=== PATIENT | female | born 1965 | race Caucasian/White ===

== ENCOUNTER 2022-03-23 12:50 | Outpatient (CLI) | payer OTHER, SELFPAY ==
--- NOTE | 2022-03-23 13:00 | CRLHL7_ITS ---
For Patients: As a result of the Century Cures Act, medical imaging exams and procedure reports are released immediately into your electronic medical record. You may view this report before your referring provider. If you have questions, please contact your health care provider. BILATERAL SCREENING MAMMOGRAM WITH COMPUTER-AIDED DETECTION AND TOMOSYNTHESIS TECHNIQUE: CC and MLO views were obtained. These mammographic images have been obtained using full-field digital technique. These mammographic images were interpreted with the benefit of computer-aided detection. Breast Tomosynthesis was used in this interpretation. COMPARISON FILM: 02/28/21, 03/14/20, 03/13/19. FINDINGS: The breasts are heterogeneously dense, which may obscure small masses IMPRESSION: There is no radiographic evidence for malignancy. ASSESSMENT: BI-RADS Category 1: Negative RECOMMENDATION: Routine screening mammogram in 1 year. A lay language report of this examination will be provided to the patient. Alexy Lee M.D. Diagnostic Radiologist [email or web address] Transcribed: 4:22 pm DW/Dictated by: Alexy Lee MD @ 03/26/2022 8:23:00 AM (Electronically Signed)
== END 2022-03-23 12:51 | disposition home or self-care (01) ==
LOC: MAMMO 12:51
PROVIDERS: PCP Physician Assistant Medical; Visit Provider Physician Assistant Medical
DX: Z12.31 Encounter for screening mammogram for malignant neoplasm of breast (principal); R92.2 Inconclusive mammogram
CPT/HCPCS: 77063; 77067

== ENCOUNTER 2023-02-22 07:30 | Outpatient (CLI) | payer OTHER, SELFPAY | END 2023-02-22 07:31 | disposition home or self-care (01) | LOC: NFLDREF 02-24 06:26 | PROVIDERS: PCP Physician Assistant Medical; Referring Provider Physician Assistant Medical; Visit Provider Physician Assistant Medical | DX: Z13.6 Encounter for screening for cardiovascular disorders (principal); Z13.29 Encounter for screening for other suspected endocrine disorder | CPT/HCPCS: 80053; 80061; 84443 ==

== ENCOUNTER 2023-03-06 12:12 | Outpatient (CLI) | payer OTHER, SELFPAY ==
--- NOTE | 2023-03-06 12:30 | CRLHL7_ITS ---
For Patients: As a result of the Century Cures Act, medical imaging exams and procedure reports are released immediately into your electronic medical record. You may view this report before your referring provider. If you have questions, please contact your health care provider. BILATERAL SCREENING MAMMOGRAM WITH COMPUTER-AIDED DETECTION AND TOMOSYNTHESIS TECHNIQUE: CC and MLO views were obtained. These mammographic images have been obtained using full-field digital technique. These mammographic images were interpreted with the benefit of computer-aided detection. Breast Tomosynthesis was used in this interpretation. COMPARISON FILM: 03/23/22, 02/28/21, 03/14/20. FINDINGS: The breasts are heterogeneously dense, which may obscure small masses IMPRESSION: There is no radiographic evidence for malignancy. ASSESSMENT: BI-RADS Category 1: Negative RECOMMENDATION: Routine screening mammogram in 1 year. A lay language report of this examination will be provided to the patient. Diaz Neville M.D. Diagnostic/Nuclear Medicine Radiologist [email or web address] ESTHER/Dictated by: Diaz Neville MD @ 03/07/2023 9:17:00 AM (Electronically Signed)
== END 2023-03-06 12:13 | disposition home or self-care (01) ==
PROVIDERS: PCP Physician Assistant Medical; Visit Provider Physician Assistant Medical
DX: Z12.31 Encounter for screening mammogram for malignant neoplasm of breast (principal); R92.2 Inconclusive mammogram
CPT/HCPCS: 77063; 77067

== ENCOUNTER 2024-03-09 07:56 | Outpatient (CLI) | payer OTHER, SELFPAY ==
--- NOTE | 2024-03-09 08:15 | CRLHL7_ITS ---
For Patients: As a result of the Century Cures Act, medical imaging exams and procedure reports are released immediately into your electronic medical record. You may view this report before your referring provider. If you have questions, please contact your health care provider. BILATERAL SCREENING MAMMOGRAM WITH COMPUTER-AIDED DETECTION AND TOMOSYNTHESIS TECHNIQUE: CC and MLO views were obtained. These mammographic images have been obtained using full-field digital technique. These mammographic images were interpreted with the benefit of computer-aided detection. Breast Tomosynthesis was used in this interpretation. COMPARISON FILM: 03/06/23, 03/23/22, 02/28/21. FINDINGS: There are scattered areas of fibroglandular density. IMPRESSION: There is no radiographic evidence for malignancy. ASSESSMENT: BI-RADS Category 1: Negative RECOMMENDATION: Routine screening mammogram in 1 year. A lay language report of this examination will be provided to the patient. Alexy Lee M.D. Diagnostic Radiologist [email or web address] SP/Dictated by: Alexy Lee MD @ 03/09/2024 9:00:00 AM (Electronically Signed)
== END 2024-03-09 07:57 | disposition home or self-care (01) ==
LOC: MAMMO 07:56
PROVIDERS: PCP Physician Assistant Medical; Visit Provider Physician Assistant Medical
DX: Z12.31 Encounter for screening mammogram for malignant neoplasm of breast (principal)
CPT/HCPCS: 77063; 77067

== ENCOUNTER 2024-03-25 08:26 | Outpatient (CLI) | payer OTHER, SELFPAY | END 2024-03-25 08:27 | disposition home or self-care (01) | LOC: NFLDREF 03-29 07:03 | PROVIDERS: PCP Physician Assistant Medical; Referring Provider Physician Assistant Medical; Visit Provider Physician Assistant Medical | DX: Z00.00 Encounter for general adult medical examination without abnormal findings (principal); Z13.6 Encounter for screening for cardiovascular disorders | CPT/HCPCS: 80048; 80061 ==

== ENCOUNTER 2025-03-10 07:57 | Outpatient (CLI) | payer OTHER, SELFPAY ==
--- NOTE | 2025-03-10 08:15 | CRLHL7_ITS ---
For Patients: As a result of the Century Cures Act, medical imaging exams and procedure reports are released immediately into your electronic medical record. You may view this report before your referring provider. If you have questions, please contact your health care provider. INDICATION: BILATERAL SCREENING MAMMOGRAM, ASYMPOTMATIC 59 Y/O FEMALE COMPARISON: 03/09/2024, 03/06/2023, 03/23/2022 TECHNIQUE: Digital mammogram in CC and MLO projections including computer-aided detection (CAD) and tomosynthesis. BREAST COMPOSITION: There are scattered areas of fibroglandular density. FINDINGS: No suspicious findings. ASSESSMENT: BI-RADS 1 Negative RECOMMENDATION: Annual screening mammogram. A lay language report of this examination will be provided to the patient. Dictated by: Chel Mcmillan MD @ 03/11/2025 11:43:26 (Electronically Signed)
== END 2025-03-10 07:58 | disposition home or self-care (01) ==
LOC: MAMMO 07:57
PROVIDERS: PCP Physician Assistant Medical; Visit Provider Physician Assistant Medical
DX: Z12.31 Encounter for screening mammogram for malignant neoplasm of breast (principal)
CPT/HCPCS: 77063; 77067

== ENCOUNTER 2025-04-12 07:56 | Outpatient (CLI) | payer OTHER, SELFPAY | END 2025-04-12 07:57 | disposition home or self-care (01) | LOC: NFLDREF 04-13 18:00 | PROVIDERS: PCP Physician Assistant Medical; Referring Provider Physician Assistant Medical; Visit Provider Physician Assistant Medical | DX: Z00.00 Encounter for general adult medical examination without abnormal findings (principal); Z13.228 Encounter for screening for other metabolic disorders; Z13.6 Encounter for screening for cardiovascular disorders; Z13.29 Encounter for screening for other suspected endocrine disorder | CPT/HCPCS: 80053; 80061; 84443 ==

== ENCOUNTER 2025-06-21 09:27 | Outpatient (CLI) | payer OTHER, SELFPAY ==
--- NOTE | 2025-06-21 10:28 | P.ANES_ITS ---
Anesthesia Charges Start Date/Time Anesthesia Start Date: 06/21/25 Anesthesia Start Time: 10:02 Stop Date/Time Anesthesia Stop Date: 06/21/25 Anesthesia Stop Time: 10:24 Coding CPT Codes CPT Codes: ANES LWR INTST NDMO NOS - [id number] ([id number]) P1 - NORMAL HEALTHY PATIENT, QK - ORDNANCE OFFICER 2-4 CNCRNT ANES PROC
--- NOTE | 2025-06-21 10:28 | W.ANESCHARGE ---
Anesthesia Charges Start Date/Time Anesthesia Start Date: 06/21/25 Anesthesia Start Time: 10:02 Stop Date/Time Anesthesia Stop Date: 06/21/25 Anesthesia Stop Time: 10:24 Coding CPT Codes CPT Codes: ANES LWR INTST NDMS NOS - [id number] ([id number]) P1 - NORMAL HEALTHY PATIENT, QK - SUPERVISOR CRACK OFF 2-4 CNCRNT ANES PROC
--- NOTE | 2025-06-21 10:36 | P.ANES_ITS ---
Anesthesia Charges Start Date/Time Anesthesia Start Date: 06/21/25 Anesthesia Start Time: 10:02 Stop Date/Time Anesthesia Stop Date: 06/21/25 Anesthesia Stop Time: 10:24 Coding CPT Codes CPT Codes: HUGO LWR INTST NDMO NOS - [id number] ([id number]) P1 - NORMAL HEALTHY PATIENT, QK - NEAR EASTERN ARCHAEOLOGY LECTURER 2-4 CNCRNT ANES PROC, QX - APPRAISER SVC W/ MED DIRECTION
--- NOTE | 2025-06-21 10:36 | W.ANESCHARGE ---
Anesthesia Charges Start Date/Time Anesthesia Start Date: 06/21/25 Anesthesia Start Time: 10:02 Stop Date/Time Anesthesia Stop Date: 06/21/25 Anesthesia Stop Time: 10:24 Coding CPT Codes CPT Codes: HUGO LWR INTST NDMS NOS - [id number] ([id number]) P1 - NORMAL HEALTHY PATIENT, QK - MEDICAL DIRECTOR/HEAD TEAM PHYSICIAN 2-4 CNCRNT ANES PROC, QX - SUPERVISOR VEGETABLE FARMING SVC W/ MED DIRECTION
== END 2025-06-21 09:28 | disposition home or self-care (01) ==
LOC: OP CLINIC 09:27
PROVIDERS: PCP Physician Assistant Medical; Visit Provider Internal Medicine
DX: Z12.11 Encounter for screening for malignant neoplasm of colon (principal); D12.2 Benign neoplasm of ascending colon; D12.5 Benign neoplasm of sigmoid colon
CPT/HCPCS: 00811; 00812; 45380; 88305; J2704